=== PATIENT | female | born 1980 | race American Indian/Alaskan Native ===

== ENCOUNTER 2016-06-03 10:22 | Emergency (ER) | payer OTHER ==
[2016-06-03 10:41] VITALS: BP 130/91
[2016-06-03] MEDS ORDERED: FLEXERIL PO ONE (11:31)
[2016-06-03] MEDS ORDERED: NORCO 5/325 PO ONE (11:31)
--- NOTE | 2016-06-03 11:58 | Cat Scan Report ---
CT SCAN OF THE LUMBAR SPINE: HISTORY: Back pain. TECHNIQUE: Contiguous 1.25 mm axial images of the lumbar spine were obtained. Sagittal and coronal reformatted images. FINDINGS: There is normal alignment of the lumbar spine. The body, pedicles and posterior ligaments appear normal. No evidence of fracture or subluxation is seen. The spinal canal appears normal. The paravertebral soft tissues appear normal. IMPRESSION: Unremarkable CT of the lumbar spine. No acute process is noted.
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
== END 2016-06-03 13:04 | disposition home or self-care (01) ==
LOC: ED 10:22
DX: M54.5 Low back pain (principal); Z88.0 Allergy status to penicillin; V89.2XXA Person injured in unspecified motor-vehicle accident, traffic, initial encounter; Y93.89 Activity, other specified; Y99.9 Unspecified external cause status; Y92.410 Unspecified street and highway as the place of occurrence of the external cause
CPT/HCPCS: 72131